=== PATIENT | male | born 1990 | race Two or more races ===

== ENCOUNTER 2021-11-01 04:33 | Emergency (ER) | payer BC ==
[~2021-11-01] VITALS: Ht 177.8 cm; Wt 74.8 kg
[2021-11-01] MEDS ORDERED: DILTIAZEM ER120 M2 (04:53)
== END 2021-11-01 07:11 ==
LOC: ER 04:33
DX: R00.2 Palpitations (principal); Z88.6 Allergy status to analgesic agent